=== PATIENT | male | born 2000 | race Two or more races ===

== ENCOUNTER 2024-12-12 18:29 | Emergency (ER) | payer OTHER, BC, SELFPAY ==
[2024-12-12 18:30] VITALS: BMI 26.6
[2024-12-12 18:43] VITALS: BP 166/77; PULSE 89; RESP 18; TEMP 37.1; O2SAT 99
--- NOTE | 2024-12-12 18:59 | EDNOTE_ITS ---
ED Wound/Laceration-RME/HPI General Chief Complaint: Dental/Oral/Throat Stated Complaint: CUT IN UPPER LIP W/ PIECE OF METAL Time Seen by Provider: 12/12/24 18:57 Source: patient Arrival date/time: 12/12/24 18:29 Limitations: no limitations RME / HPI RME / HPI narrative: 24-year-old male is here today with a macerated lip laceration. He states this occurred 1 hour prior to his arrival. He states he was at home working on his UTV and his lip was struck by a shock. Related Data Allergies Allergy/AdvReac Type Severity Reaction Status Date / Time No Known Allergies Allergy Verified 12/12/24 18:32 Review of Systems Review of Systems Systems Reviewed: All systems reviewed, normal except as documented ED Exam General Limitations: Present no limitations General appearance: Present alert and in no apparent distress Head Head exam: Present atraumatic Eye Eye exam: Present normal appearance, PERRL and EOMI ENT ENT exam: Present normal exam, normal oropharynx and mucous membranes moist Neck Neck exam: Present normal inspection, full ROM and trachea midline Chest Chest inspection: Present normal inspection and symmetric chest wall rise Respiratory Respiratory exam: Present normal lung sounds bilaterally Cardiovascular Cardiovascular exam: Present regular rate, normal rhythm and normal heart sounds Abdominal Exam Abdominal exam: Present soft and normal bowel sounds Extremities Exam Extremities exam: Present normal inspection and full ROM Back Exam Back exam: Present normal inspection and full ROM Neurological Exam Neurological exam: Present alert, oriented X3 and CN II-XII intact Psychiatric Psychiatric exam: Present normal affect and normal mood Skin Skin exam: Present warm, dry, normal color and other (1.3, macerated, wound at the upper lip that involves the vermilion border) Course Quality Measures none Orders Category Date Time Status TDap [Obtain Tdap Consent] X1 Care 12/12/24 18:58 Active Lidocaine 1% 20 ml [Xylocaine 1% 20 ML] Med 12/12/24 19:07 Discontinued 20 ml INFL X1 ONE Lidocaine 1% Pf 5 ml [Xylocaine 1% Pf 5 ml] Med 12/12/24 18:58 Discontinued 10 ml INFL X1 ONE TET,DIP/PERT AC (Adult)-Tdap [Boostrix Adult (Tdap) Med 12/12/24 18:58 Discontinued Vacc] 0.5 ml IMI .ONCE ONE cephALEXin [Keflex] Med 12/12/24 18:58 Discontinued 500 mg PO X1 ONE Vital Signs Vital signs: Vital Signs Temperature 98.7 F 12/12/24 18:43 Pulse Rate 89 12/12/24 18:43 Respiratory Rate 18 12/12/24 18:43 Blood Pressure 166/77 H 12/12/24 18:43 Pulse Oximetry (%) 99 12/12/24 18:43 Oxygen Delivery Method Room Air 12/12/24 18:43 PROCEDURES: Procedure Comment Verbal consent was obtained. Wound was infiltrated 1% lidocaine. The upper lip was then released from the upper dental braces. Wound margins were approximated using 4, subunruptured, 6-0, nylon sutures. Procedure was tolerated well without any immediate complication. Wound care was discussed, patient will continue wound care at home. Return as needed for worsening changes. Wound / Laceration MDM Narrative MDM Narrative:: 24-year-old male is here today with a macerated lip laceration. He states this occurred 1 hour prior to his arrival. He states he was at home working on his UTV and his lip was struck by a shock. He states his lip is stuck on his upper braces. On exam, patient has a macerated wound that extends through the vermilion border of the upper lip. Wound is approximated with primary tension. See procedure note. Wound care was discussed. Patient agrees to follow-up in clinic in 5 days for suture removal and wound recheck. Return here as needed for any worsening changes. Patient data External records reviewed:: None Clinical information provided by:: patient Social determinants that could affect healthcare access:: none Patient has the following chronic illnesses:: n/a How is presenting disease/condition affected by chronic disease/condition?: no chronic disease Evaluation data The following diagnostics were reviewed and interpreted by me:: other (specify) Lab and/or radiology exams considered but not ordered:: n/a Interpretation Summary: n/a Medications / Prescriptions Medications or Prescriptions considered but not ordered:: n/a Medication administrations:: Medication Administration History Discontinued Medications Cephalexin HCl (Cephalexin 250 Mg Capsule) 500 mg PO X1 ONE Stop: 12/12/24 18:59 Last Admin: 12/12/24 19:32 Dose: 500 mg Documented By: MF Diphtheria/Tetanus/Acell Pertussis (Diphth,Pertuss(Acell),Tet Vac 0.5 Ml Syr- Adult) 0.5 ml IMi .ONCE ONE Stop: 12/12/24 18:59 Last Admin: 12/12/24 19:31 Dose: 0.5 ml Documented By: ARNULFO Lidocaine HCl (Lidocaine Inj Pf 1% 5 Ml Vial) 10 ml INFL X1 ONE Stop: 12/12/24 18:59 Last Admin: 12/12/24 19:33 Dose: Not Given Documented By: ARNULFO Non-Admin Reason: Cancelled by Provider Lidocaine HCl (Lidocaine Hcl 1% 20 Ml Vial) 20 ml INFL X1 ONE Stop: 12/12/24 19:08 Last Admin: 12/12/24 19:32 Dose: 20 ml Documented By: ARNULFO See above Consultations Consultation(s) initiated? (list below): No Diagnosis Wound Differential Diagnosis: laceration and avulsion of skin Most likely diagnosis given after review of the tests above:: Upper lip laceration Admission Indicated Admission indicated?: not indicated Admission Request Was there a request for admission?: No Disposition Plan Disposition Plan: Discharge Discharge Attestation Discharge Attestation: The patient and all family members were given an opportunity to ask questions and understood the discharge instructions. Discharge instructions specifically effects, indications for sooner follow up or return to the emergency department, and the expected course of current diagnosis. Patient condition: Stable Discharge Plan Plan Patient Disposition: HOME (Self Care) Patient condition on transfer: Stable Prescriptions/Referrals Referrals: No Primary/Family,Physician [Primary Care Provider] - In 1 week Problem List Clinical Impression: Complicated laceration of lip Patient/Caregiver Discharge Instructions Education Materials: ED Laceration, Lip or Mouth Additional Instructions: - You may lightly irrigate your inner lip with clean water. Avoid alcohol, hydroperoxide, or iodine. - Use Tylenol and ibuprofen as needed for comfort. - Follow-up in clinic in 5 days for wound recheck, consider suture removal at that time. - Please return at anytime for any worsening changes including signs and symptoms of infection. Print Language: Romansh Stand Alone Forms: Dayanna Award Info., Patient Portal Info Letter
[2024-12-12] MEDS: DIPHTH,PERTUSS(ACELL),TET VAC 0.5 ML SYR- ADULT IMi (19:31)
[2024-12-12] MEDS: LIDOCAINE HCL 1% 20 ML VIAL INFL (19:32)
== END 2024-12-12 20:26 | disposition home or self-care (01) ==
PROVIDERS: Emergency Provider Emergency Medicine
DX: S01.511A Laceration without foreign body of lip, initial encounter (principal); X58.XXXA Exposure to other specified factors, initial encounter; Z23 Encounter for immunization
CPT/HCPCS: 12011; 90715; 99283; J3490; A9270